=== PATIENT | female | born 1995 | race Caucasian/White ===

== ENCOUNTER 2020-01-08 07:57 | Outpatient (CLI) | payer BC, SELFPAY ==
--- NOTE | 2020-01-08 14:00 | NS.NUTBLAN_ITS ---
Elsa is a 24 year old mother of three that presents with binge eating disorder. She was referred for MNT. Food record indicates erratic eating schedule, reliance on convenience foods and no routine exercise. She reports long history of binge eating since childhood growing up in alcoholic family. Elsa reports eating 1/2 galloon of ice cream or a package of cookies as a binge. Wt: 259 lbs, BMI 53, down 30 lbs in last year. Highest weight 289 lbs. She has had weight loss success with exercise and limiting sugar intake. Goal weight is 190 lbs. No hx of gestational diabetes. Educated Elsa today on how to follow balanced low carb, high protein diet with emphasis on complex carbs, lean protein and non starchy vegetables. Encouraged her to walk 20 min on lunch hour for exercise. Discussed with her the relationship of children of alcoholics becoming binge eaters and referred her to [employer] for resources. Elsa would benefit from seeing a therapist as her food behavior is a coping mechanism and intertwined to her daily life. Elsa was recommended to use [employer] to keep a food record and keep track of nutrient intake. Goal: 10 lbs weight loss per month with goal weight ofg 190 lbs. Plan: Elsa will email policy writer sales food record by next week and make follow up appt. at that time.
== END 2020-01-08 08:17 ==
PROVIDERS: PCP Registered Nurse; Visit Provider Dietitian, Registered
DX: F50.81 Binge eating disorder (principal); Z71.3 Dietary counseling and surveillance
CPT/HCPCS: 97802